=== PATIENT | female | born 2000 | race Caucasian/White ===

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

== ENCOUNTER 2021-01-21 23:39 | Emergency (ER) | payer MEDICAID ==
[~2021-01-21 23:39] MED LIST changes: +ONE A DAY PREN1 EACH PO
[2021-01-22] MEDS ORDERED: COLACE100 M1 PO (01:20)
[2021-01-22] MEDS ORDERED: MIRALAX17 GM PO (01:20)
[2021-01-22 01:40] VITALS: BP 112/64
== END 2021-01-22 01:40 | disposition home or self-care (01) ==
LOC: ED 23:39
DX: K64.4 Residual hemorrhoidal skin tags (principal); F17.200 Nicotine dependence, unspecified, uncomplicated

== ENCOUNTER → 2021-03-19 | Outpatient (CLI) | payer MEDICAID ==
[~2021-03-19] MED LIST changes: +COLACE100 M1 PO; +MIRALAX17 GM PO
[2021-03-19 10:27] LABS: BASO # 0.02 (0.02-0.10); EOS % 2.7 % (1.0-5.0); HEMATOCRIT 42.2 % (37.0-47.0); HEMOGLOBIN 13.5 g/dL (12.5-16.0); LYMPH# 1.47 (1.50-4.00); MEAN CELL VOLUME 92 fl (78-100); MEAN CORPUSCULAR HEMOGLOBIN 30 pg (27-31); MEAN CORPUSCULAR HGB CONC 32 g/dL (33-37); MEAN PLATELET VOLUME 12.1 fl (7.4-10.4); MONO # 0.38 (0.20-0.80); NEU # 1.77 (1.40-6.50); PLATELET COUNT 140 K/mm3 (130-400); RED BLOOD COUNT 4.58 M/mm3 (4.10-5.30); RED CELL DISTRIBUTION WIDTH 12.6 % (11.5-14.5); WHITE BLOOD COUNT 3.7 K/mm3 (4.8-10.8)
[2021-03-19 10:29] LABS: POTASSIUM 3.9 mmol/L (3.5-5.1)
[2021-03-19 10:31] LABS: CALCIUM 9.6 mg/dL (8.3-10.5)
[2021-03-19 10:33] LABS: TOTAL PROTEIN 6.6 g/dL (6.4-8.3)
[2021-03-19 10:34] LABS: TOTAL BILIRUBIN 0.5 mg/dL (0.2-1.2)
== END ==
LOC: LAB 09:51
PROVIDERS: Physician Assistant
DX: Z00.00 Encounter for general adult medical examination without abnormal findings (principal); R81 Glycosuria; N92.5 Other specified irregular menstruation

== ENCOUNTER → 2021-07-04 | Outpatient (CLI) | payer MEDICAID | LOC: LAB 14:32 | DX: U07.1 COVID-19 (principal) ==

== ENCOUNTER 2021-07-31 19:55 | Emergency (ER) | payer MEDICAID ==
[~2021-07-31] VITALS: Ht 154.9 cm; Wt 47.7 kg
[2021-07-31 21:43] VITALS: BP 114/65
== END 2021-07-31 21:43 | disposition home or self-care (01) ==
LOC: ED 19:55
DX: H92.02 Otalgia, left ear (principal); N91.2 Amenorrhea, unspecified; M26.622 Arthralgia of left temporomandibular joint; F17.210 Nicotine dependence, cigarettes, uncomplicated; Z91.040 Latex allergy status; Z32.02 Encounter for pregnancy test, result negative

== ENCOUNTER → 2021-11-10 | Outpatient (CLI) | payer MEDICAID ==
[2021-11-10 15:30] LABS: BASO # 0.03 K/mm3 (0.02-0.10); EOS # 0.07 K/mm3 (0.04-0.40); EOS % 1.6 % (1.0-5.0); HEMATOCRIT 38.9 % (37.0-47.0); HEMOGLOBIN 12.8 g/dL (12.5-16.0); LYMPH# 1.13 K/mm3 (1.50-4.00); MEAN CELL VOLUME 91 fl (78-100); MEAN CORPUSCULAR HEMOGLOBIN 30 pg (27-31); MEAN CORPUSCULAR HGB CONC 33 g/dL (33-37); MEAN PLATELET VOLUME 11.1 fl (7.4-10.4); NEU # 2.63 K/mm3 (1.40-6.50); PLATELET COUNT 154 K/mm3 (130-400); RED BLOOD COUNT 4.29 M/mm3 (4.10-5.30); RED CELL DISTRIBUTION WIDTH 12.2 % (11.5-14.5); WHITE BLOOD COUNT 4.3 K/mm3 (4.8-10.8)
[2021-11-10 15:38] LABS: ALBUMIN 4.3 g/dL (3.5-5.0); POTASSIUM 4.3 mmol/L (3.5-5.1)
[2021-11-10 15:40] LABS: CALCIUM 10.2 mg/dL (8.3-10.5)
[2021-11-10 15:43] LABS: TOTAL BILIRUBIN 0.5 mg/dL (0.2-1.2)
[2021-11-10 15:46] LABS: TOTAL PROTEIN 6.9 g/dL (6.4-8.3)
== END ==
LOC: LAB 15:20
PROVIDERS: Physician Assistant
DX: B35.1 Tinea unguium (principal); Q84.5 Enlarged and hypertrophic nails; L84 Corns and callosities

== ENCOUNTER → 2021-11-13 | Outpatient (CLI) | payer MEDICAID | LOC: LAB 14:53 | DX: J06.9 Acute upper respiratory infection, unspecified (principal); Z20.822 Contact with and (suspected) exposure to COVID-19 ==

== ENCOUNTER → 2022-06-02 | Outpatient (CLI) | payer MEDICAID | LOC: LAB 15:30 | DX: Z20.822 Contact with and (suspected) exposure to COVID-19 (principal) ==

== ENCOUNTER → 2023-09-10 | Outpatient (CLI) | payer MEDICAID | LOC: LAB 16:35 | DX: R30.0 Dysuria (principal) ==